=== PATIENT | male | born 1990 | race Caucasian/White ===

== ENCOUNTER 2023-01-22 17:22 | Emergency (ER) | payer OTHER, SELFPAY ==
--- NOTE | 2023-01-22 17:24 | ED_ITS ---
HPI - URI/Sore Throat General Chief Complaint: General Medical Stated Complaint: Sore throat Time Seen by Provider: 01/22/23 17:38 Source: patient, RN notes reviewed and old records reviewed Mode of arrival: ambulatory History of Present Illness HPI Narrative: 32-year-old male with past medical history dental extraction yesterday c/o sore throat x3 weeks with painful/difficulty swallowing. Pain radiating to right ear. Admits was initially seen at urgent care, had rapid strep and throat culture which were negative, however was treated with Amoxicillin x10 days. Also reports dental infection s/p extracted yesterday was given an additional 4 days worth of Amoxicillin & then was seen at again for continued sx and prescribed Augmentin x10 day course, has taken 2 days worth. Reports fever initially, resolved at present. Denies inability to swallow, cough, drainage from ear, SOB MD elicited complaint: sore throat Related Data Previous Rx's Medication Instructions Recorded lidocaine HCl 2 % mucosal solution 5 ml mucous membrane TID PRN pain 01/22/23 (Lidocaine Viscous) #70 mL Allergies Allergy/AdvReac Type Severity Reaction Status Date / Time From SULFUR-8 Allergy Unknown UNKNOWN Uncoded 05/19/20 17:02 Review of Systems Review of Systems: Constitutional: + Fever (resolved), No Chills ENT/Mouth: + Ear Pain, No Nasal Congestion, No Hoarseness, +sore throat, No Rhinorrhea, No Swallowing Difficulty Cardiovascular: No Chest Pain, No SOB Respiratory: No Cough, No Sputum, No Wheezing Gastrointestinal: No Nausea, No Vomiting, No Abdominal pain Genitourinary: No Dysuria, No Urinary Frequency, No Hematuria, No Flank Pain Musculoskeletal: No joint pain, No Myalgias, No Joint Swelling Skin: No Skin Lesions, No rash Neuro: No Weakness Yes all other systems are reviewed and are negative Constitutional: Constitutional: Reports as per [facility] Past Medical History Attestation statement: The following information was validated with the patient. Source: old records reviewed Social History Social History Advance Directives: No Advance Directives Information Provided: No Physical Exam Vital Signs: Vital Signs: Last Vital Signs Temp 98.9 F 01/22/23 19:58 Pulse 85 01/22/23 20:56 Resp 18 01/22/23 19:58 BP 148/99 H 01/22/23 20:56 Pulse Ox 97 01/22/23 19:58 O2 Del Method Room Air 01/22/23 19:58 BMI result Body Mass Index 30.6 Const: General: cooperative, healthy appearing and no acute distress Orien tation/consciousness: patient oriented x3 Limitations: no limitations HEENT: Other: Right lower bicuspid extracted, no surrounding cellulitis, no fluctuance/induration or drainage Head: Yes normal to inspection and Yes atraumatic Ears: hearing grossly normal bilaterally, external ears normal, TM's normal bilaterally and mastoids normal General nose exam: Normal external nose present Face and sinus: Yes normal facial exam Throat: Yes uvula midline, No abnormal tonsil, No peritonsillar mass, Yes posterior oropharynx abnormal (mildly erythematous with faint white exudates), No uvula laterally displaced and No uvular edema Eyes: General: appearance normal, both eyes and all related structures EOM: EOMs intact bilaterally Neck: Neck: Yes normal visual inspection, Yes no lymphadenopathy and Yes no meningeal signs Resp: Effort & Inspection: normal respiratory effort, no respiratory distress and no stridor Auscultation: clear to auscultation bilaterally Cardio: Rate: regular rate Heart sounds: S1 normal heart sound present and S2 normal heart sound present Skin: Rashes: no rashes Wounds: no wounds Neuro: General: patient oriented x3, tone normal and no meningeal signs Gait exam (Neuro): Normal gait present Extrem: General: Yes normal to inspection Course Course Course Narrative: -1899--COVID/flu, rapid strep, and Monospot negative -patient tolerating p.o. in the ED without difficulty, but with continued discomfort after viscous lido & PO Decadron. Case d/w Dr. Stock who also evaluated patient > will obtain labs to evaluate WBC. No need for imaging at this time -patient states BP has been running elevated due to stress/pain and anxiety. Does not take BP meds. -2039--no leukocytosis. CRP mildly elevated -VS improved >Recommended continuation of previously prescribed Augmentin and ENT follow-up Results discussed with patient including worrisome signs and symptoms and strict return precautions, and when to return to the emergency department. They verbalized understanding and feel safe for discharge at this time. Medications Administered Discontinued Medications Generic Name Dose Route Start Last Admin Trade Name Ramírez PRN Reason Stop Dose Admin Dexamethasone Sodium Phosphate 10 mg 01/22/23 19:07 01/22/23 19:22 Dexamethasone Sod Phosphate 10 Mg/Ml Vial IVPUSH 01/22/23 19:08 10 mg ONCE ONE Administration Lidocaine HCl 5 ml 01/22/23 17:28 01/22/23 19:21 Lidocaine Hcl Viscous 2 % 15 Ml Solution MUCOUS MEM 01/22/23 17:29 5 ml ONCE ONE Administration Medical Decision Making Medical Decision Making MDM Narrative: 32-year-old male with past medical history dental extraction yesterday c/o sore throat x3 weeks with painful/difficulty swallowing. On exam hypertensive likely from the discomfort, NAD, nontoxic appearing, talking in complete sentences, no respiratory distress, posterior or pharyngeal erythema with faint exudates noted, uvula midline, no evidence of [employer], TMs WNL, right lower bicuspid extract ed, no surrounding erythema, no fluctuance/induration or drainage. Concern for mononucleosis vs viral pharyngitis vs strep pharyngitis. No evidence of thrush for [employer]. Low suspicion for otitis/mastoiditis. No evidence of Rashaad's, low suspicion for epiglottitis Plan: COVID/flu testing, rapid strep, Monospot, viscous lidocaine, PO Decadron Please refer to course for remaining clinical decision making, interpretation of labs/imaging results, and discussions with consultants and/or family members. Differential Diagnosis Differential Diagnoses: The differential diagnosis associated with the presentation includes As above Lab Data [facility] Lab Attestation statement: I reviewed the patient's lab results. 01/22/23 20:22 01/22/23 20:22 Labs: Lab Results 01/22/23 01/22/23 01/22/23 Range/Units 18:06 18:06 18:06 WBC (4.8-10.8) X10*3/uL RBC (4.60-5.80) X10*6/uL Hgb (14.0-18.0) g/dl Hct (42.0-52.0) % MCV (80.0-98.0) fL MCH (27.0-33.0) pg MCHC (31.0-36.0) g/dl RDW (11.0-16.0) % Plt Count (160-400) X10*3/uL MPV (9.4-12.4) fL Immature Gran % (Auto) (0.0-0.4) % Neut % (Auto) (45-73) % Lymph % (Auto) (20-40) % Harding % (Auto) (2-11) % Eos % (Auto) (0-4) % Baso % (Auto) (0-2) % Lymph # (Auto) (1.2-4.9) X10*3/uL Harding # (Auto) (0.1-1.2) X10*3/uL Eos # (Auto) (0.0-0.4) X10*3/uL Baso # (Auto) (0.0-0.2) X10*3/uL Abs Immat Gran (auto) (0.00-0.03) X10*3/uL Absolute Neuts (auto) (2.0-8.3) x10*3/uL Absolute Nucleated RBC (0.0-0.012) X10*3/uL Nucleated RBC % (auto) (0.0-0.2) /100WBC Sodium (135-145) mmol/L Potassium (3.3-5.1) mmol/L Chloride (96-108) mmol/L Carbon Dioxide (22-29) mmol/L Anion Gap (12-20) BUN (9-16) mg/dL Creatinine (0.5-1.4) mg/dL Estim Creat Clear Calc Estimated GFR Random Glucose (60-115) mg/dL Calcium (8.4-10.2) mg/dL C-Reactive Protein (< or = 0.50) mg/dL COVID-19 (MELLO) Negative (Negative) COVID-19 Clin Com See Note Monoscreen (Negative) Influenza Type A (SANDRA) Negative (Negative) Influenza Type B (SANDRA) Negative (Negative) Influenza A & B Note See Note S. pyogenes GrpA SANDRA Negative (Negative) 01/22/23 01/22/23 01/22/23 Range/Units 18:09 20:22 20:22 WBC 8.3 (4.8-10.8) X10*3/uL RBC 5.34 (4.60-5.80) X10*6/uL Hgb 16.0 (14.0-18.0) g/dl Hct 46.8 (42.0-52.0) % MCV 87.6 (80.0-98.0) fL MCH 30.0 (27.0-33.0) pg MCHC 34.2 (31.0-36.0) g/dl RDW 12.1 (11.0-16.0) % Plt Count 288 (160-400) X10*3/uL MPV 10.4 (9.4-12.4) fL Immature Gran % (Auto) 0.4 (0.0-0.4) % Neut % (Auto) 72.3 (45-73) % Lymph % (Auto) 18.5 L (20-40) % Harding % (Auto) 6.7 (2-11) % Eos % (Auto) 1.6 (0-4) % Baso % (Auto) 0.5 (0-2) % Lymph # (Auto) 1.5 (1.2-4.9) X10*3/uL Harding # (Auto) 0.6 (0.1-1.2) X10*3/uL Eos # (Auto) 0.1 (0.0-0.4) X10*3/uL Baso # (Auto) 0.0 (0.0-0.2) X10*3/uL Abs Immat Gran (auto) 0.03 (0.00-0.03) X10*3/uL Absolute Neuts (auto) 6.0 (2.0-8.3) x10*3/uL Absolute Nucleated RBC 0.000 (0.0-0.012) X10*3/uL Nucleated RBC % (auto) 0.0 (0.0-0.2) /100WBC Sodium 143 (135-145) mmol/L Potassium 4.1 (3.3-5.1) mmol/L Chloride 105 (96-108) mmol/L Carbon Dioxide 28 (22-29) mmol/L Anion Gap 14 (12-20) BUN 12 (9-16) mg/dL Creatinine 1.12 (0.5-1.4) mg/dL Estim Creat Clear Calc 112.7 Estimated GFR > 60 Random Glucose 99 (60-115) mg/dL Calcium 10.0 (8.4-10.2) mg/dL C-Reactive Protein 2.09 H (< or = 0.50) mg/dL COVID-19 (MELLO) (Negative) COVID-19 Clin Com Monoscreen Negative (Negative) Influenza Type A (SANDRA) (Negative) Influenza Type B (SANDRA) (Negative) Influenza A & B Note S. pyogenes GrpA SANDRA (Negative) Radiology Impression Discussion of test interpretation with radiology: I have reviewed the radiologist's reading. External Record Review External record reviewed: Inpatient record, Office record, Outpatient record, Prior outpatient labs, Prior outpatient radiology, Primary care record and Outside ED record Tests considered The following testing was considered but not selected: CT scan Discharge Plan Discharge Clinical Impression: Sore throat Patient Disposition: Home, Self-Care Instructions: Pharyngitis (ED) Additional Instructions: You tested negative for COVID, flu, strep throat, and mono Continue previously prescribed antibiotic Viscous lidocaine will help with throat discomfort Gargle with warm saltwater Please follow-up with an ENT specialist If symptoms persist or worsen, you are unable to eat or drink, develops shortness of breath, or throat closing sensation return to the ED Prescriptions: New lidocaine HCl [Lidocaine Viscous] 2 % solution 5 ml mucous membrane TID PRN (Reason: pain) Qty: 70 0RF Referrals: Zane Paulino [Physician] -
[2023-01-22 17:25] VITALS: BP 144/105; PULSE 97; RESP 18; TEMP 36.8; O2SAT 99; BMI 30.6
[2023-01-22 18:29] LABS: IDNOW Serial# 08D9AD1C; Strep A Nucleic Acid Negative (Negative)
[2023-01-22 18:33] LABS: Monotest Negative (Negative)
[2023-01-22 18:37] LABS: COVID-19 Test Negative (Negative); IDNOW Serial# BCCEAD1C
[2023-01-22 18:56] LABS: IDNOW Serial# 9DB6401D; Influenza A Negative (Negative); Influenza B2 Negative (Negative)
--- NOTE | 2023-01-22 19:00 | PC.NURSE ---
assumed care of pt aox4 no apparent distress c/o sore thrt that doesn't allow him to properly swallow
[2023-01-22 19:09] VITALS: BP 158/103; PULSE 104; RESP 18; TEMP 36.6; O2SAT 98
[2023-01-22] MEDS: Lidocaine HCl Viscous 2 % 15 ML SOLUTION 5 ML MUCOUS MEM (19:21)
--- NOTE | 2023-01-22 19:21 | PC.NURSE ---
lidocaine viscous 2% and dexamethasone PO administered per MAR
[2023-01-22] MEDS: dexAMETHasone sod phosphate 10 MG/ML VIAL IVPUSH (19:22)
[2023-01-22 19:58] VITALS: BP 145/103; PULSE 95; RESP 18; TEMP 37.2; O2SAT 97
[2023-01-22 20:27] LABS: MANUAL DIFF FLAG NO
[2023-01-22 20:28] LABS: Basophils Percent Auto 0.5 % (0-2); Eosinophils Absolute Auto 0.1 X10*3/uL (0.0-0.4); Eosinophils Percent Auto 1.6 % (0-4); Hematocrit 46.8 % (42.0-52.0); Imm Gran Abs Auto 0.03 X10*3/uL (0.00-0.03); Imm Gran Pct Auto 0.4 % (0.0-0.4); Lymphocytes Absolute Auto 1.5 X10*3/uL (1.2-4.9); Lymphocytes Percent Auto 18.5 % (20-40); Mean Corpuscular HGB Conc 34.2 g/dl (31.0-36.0); Mean Corpuscular Volume 87.6 fL (80.0-98.0); Mean Platelet Volume 10.4 fL (9.4-12.4); Monocytes Absolute Auto 0.6 X10*3/uL (0.1-1.2); Monocytes Percent Auto 6.7 % (2-11); Neutrophils Percent Auto 72.3 % (45-73); Platelet Count 288 X10*3/uL (160-400); Red Blood Count 5.34 X10*6/uL (4.60-5.80); Red Cell Distribution Width 12.1 % (11.0-16.0); White Blood Count 8.3 X10*3/uL (4.8-10.8)
[2023-01-22 20:50] LABS: Anion Gap 14 (12-20); Blood Urea Nitrogen 12 mg/dL (9-16); C Reactive Protein 2.09 mg/dL (< or = 0.50); Carbon Dioxide 28 mmol/L (22-29); Chloride 105 mmol/L (96-108); Creatinine Clr Calc Pharmacy 112.7; Estimated Glomerular Filt Rate > 60; Glucose Random 99 mg/dL (60-115); Potassium 4.1 mmol/L (3.3-5.1); Sodium 143 mmol/L (135-145)
[2023-01-22 20:56] VITALS: BP 148/99; PULSE 85
[2023-01-22 21:05] LABS: Erythrocyte Sedimentation Rate 16 MM/HR (0-15)
--- NOTE | 2023-01-22 21:05 | PC.NURSE ---
Discharge instructions given and explained to patient aox4 no apparent distress ambulates safely and independently
== END 2023-01-22 21:03 | disposition home or self-care (01) ==
PROVIDERS: Physician Assistant; Emergency Provider Internal Medicine
DX: J02.9 Acute pharyngitis, unspecified (principal); R13.10 Dysphagia, unspecified; Z20.822 Contact with and (suspected) exposure to COVID-19
CPT/HCPCS: 36415; 80048; 85025; 85652; 86140; 86308; 87502; 87635; 87651; 99283; 99284; J1100